=== PATIENT | female | born 1995 | race Caucasian/White ===

== ENCOUNTER 2023-11-10 07:16 | Emergency (ER) | payer MEDICAID, OTHER ==
[~2023-11-10] VITALS: Ht 157.5 cm; Wt 71.5 kg
[~2023-11-10 07:16] MED LIST: ALBU18HF2 INH; PRED10TA PO
[2023-11-10 07:27] VITALS: TEMP 98.9
[2023-11-10] MEDS: methylPREDNISolone sod succ 125mg/2ml vial IV ONE (08:14)
[2023-11-10] MEDS: magnesium 2GM in 50ml NS 50 ML IV ONE (08:21)
[2023-11-10] MEDS: albuterol 2.5 MG/3 ML nebule NEB ONE ×2 (08:47→09:12)
[2023-11-10] MEDS: ipratropium/albuterol 3ml nebule NEB ONE (08:47)
[2023-11-10 08:48] VITALS: PULSE 101; RESP 20; O2SAT 97
[2023-11-10 09:06] VITALS: PULSE 99; RESP 16; O2SAT 99
[2023-11-10 09:06] LABS: ALBUMIN 3.9 G/DL (3.4-5.0); ANION GAP 13 (8-16); BLOOD UREA NITROGEN 13 MG/DL (7-18); BUN/CREATININE RATIO 14.8 (10.0-20.0); CALCIUM 8.8 MG/DL (8.5-10.1); CHLORIDE 108 MMOL/L (99-107); CREATININE 0.88 MG/DL (0.40-0.90); GLUCOSE 93 MG/DL (70-104); POTASSIUM 3.6 MMOL/L (3.5-5.1); SODIUM 143 MMOL/L (135-145); TOTAL CARBON DIOXIDE 22.5 MMOL/L (24-32); eCRCL 76 ML/MIN; eGFR 77 ML/MIN
[2023-11-10 09:09] VITALS: BP 139/87
[2023-11-10 09:13] VITALS: PULSE 102; RESP 20; O2SAT 97
[2023-11-10 09:13] LABS: BASOPHILS # (AUTO) 0.1 X10'3 (0-0.2); BASOPHILS % (AUTO) 0.6 % (0-1); EOSINOPHILS # (AUTO) 1.9 X10'3 (0-0.9); EOSINOPHILS % (AUTO) 14.9 % (0-6); HEMATOCRIT 43.3 % (35.0-45.0); HEMOGLOBIN 14.6 g/dl (12.0-16.0); LYMPHOCYTES # (AUTO) 2.4 X10'3 (1.1-4.8); LYMPHOCYTES % (AUTO) 18.7 % (21-51); MEAN CORPUSCULAR HGB CONC 33.7 g/dL (33.0-36.5); MEAN CORPUSCULAR VOLUME 83.2 FL (78-98); MEAN PLATELET VOLUME 8.7 FL (7.4-10.4); MONOCYTES # (AUTO) 0.6 X10'3 (0-0.9); MONOCYTES % (AUTO) 4.8 % (2-12); NEUTROPHILS # (AUTO) 7.9 X10'3 (1.8-7.7); PLATELET COUNT 258 X10'3 (140-440); RED CELL DISTRIBUTION WIDTH 13.2 % (11.5-14.5)
[2023-11-10 09:33] LABS: TOTAL CELLS COUNTED 100
[2023-11-10 09:34] VITALS: PULSE 114; RESP 14; O2SAT 100
[2023-11-10 09:34] LABS: PLATELET ESTIMATE NORMAL; POIKILOCYTOSIS FEW
[2023-11-10] MEDS ORDERED: PRED20TA PO (10:13)
[2023-11-10] MEDS ORDERED: ALBU18HF2 INH (10:13)
[2023-11-10] MEDS ORDERED: BUDE10.22 INH (10:13)
== END 2023-11-10 11:09 | disposition home or self-care (01) ==
LOC: ER 07:17
DX: J45.901 Unspecified asthma with (acute) exacerbation (principal); Z79.899 Other long term (current) drug therapy
CPT/HCPCS: 36415; 71046; 80048; 85007; 85025; 87040; 94640; 96365; 96366; 96375; 99284; J2930; J3475; 94760